=== PATIENT | male | born 1970 | race Caucasian/White ===

== ENCOUNTER 2023-01-06 18:14 | Emergency (ER) | payer BC, MEDICAID, SELFPAY ==
[2023-01-06] VITALS (29 sets, daily range): BP systolic 82–182; BP diastolic 64–121; PULSE 75–115; RESP 16–18; TEMP 34.2; O2SAT 77–99; BMI 18.2
--- NOTE | 2023-01-06 18:15 | ECG_ITS ---
[facility] Test Date: 2023-01-06 Pat Name: Alexis Duron Department: Room: Gender: Male Appointment Specialist: : 1970 Requested By: Russell Escobar Order Number: [id number] Ana Paula MD: Elsie Muir M.D. Measurements Intervals [place] Rate: 87 P: 79 MO: 154 QRS: 101 QRSD: 114 T: 0 QT: 394 QTc: 476 Interpretive Statements SINUS RHYTHM RIGHT AXIS DEVIATION [QRS AXIS > 100] ANTEROSEPTAL MYOCARDIAL INFARCTION , OF INDETERMINATE AGE [40+ ms Q WAVE IN V1-V4] ST DEPRESSION, CONSIDER SUBENDOCARDIAL INJURY [0.1+ mV ST DEPRESSION] INTERPRETATION BASED ON A DEFAULT AGE OF 40 YEARS No previous ECG available for comparison Electronically Signed On 01-07-2023 5:57:12 [employer] ARCHITECT by Elsie Muir M.D. [id number]
--- NOTE | 2023-01-06 18:16 | XRR_ITS ---
PROCEDURE INFORMATION: Exam: XR Chest Exam date and time: 01/06/2023 6:29 PM Age: 52 years old Clinical indication: Device placement; Ett placement (vent status); Patient HX: Cardiac arrest; Ett/og placement TECHNIQUE: Imaging protocol: Radiologic exam of the chest. Views: 1 view. COMPARISON: No relevant prior studies available. FINDINGS: Tubes, catheters and devices: There is an endotracheal tube with the tip 5.0 cm above the charlette. There is an enteric tube with the tip in the fundus of the stomach. Lungs: Mild interstitial pulmonary edema with superimposed atelectasis versus pneumonia in the left lingula and left lower lobe. Pleural spaces: Small left pleural effusion. No pneumothorax. Heart/Mediastinum: The cardiac silhouette is mildly enlarged. Bones/joints: Multilevel degenerative changes of varying severity in the visualized spine. XR/XR chest 1V portable [id number] IMPRESSION: 1. Mild interstitial pulmonary edema with superimposed atelectasis versus pneumonia in the left lingula and left lower lobe. Recommend followup chest imaging to insure resolution of these findings. 2. There is an endotracheal tube with the tip 5.0 cm above the charlette. 3. There is an enteric tube with the tip in the fundus of the stomach. 4. Incidental/nonacute findings are listed in the report.
--- NOTE | 2023-01-06 18:23 | CTR_ITS ---
PROCEDURE INFORMATION: Exam: CT Head Without Contrast Exam date and time: 01/06/2023 7:51 PM Age: 52 years old Clinical indication: Other: Post code; Additional info: Cardiac arrest TECHNIQUE: Imaging protocol: Computed tomography of the head without contrast. Sagittal and coronal reformatted images were created and reviewed. Radiation optimization: All CT scans at this facility use at least one of these dose optimization techniques: automated exposure control; mA and/or kV adjustment per patient size (includes targeted exams where dose is matched to clinical indication); or iterative reconstruction. REPORTING DATA: Count of CT and Cardiac NM exams in prior 12 months: This patient has received 0 known CTs and 0 known cardiac nuclear medicine studies in the 12 months prior to the current study. COMPARISON: No relevant prior studies available. RADIATION DOSE METRICS: Total DLP (mGy-cm): 1294.38 FINDINGS: Tubes, catheters and devices: Endotracheal tube and enteric tube extends into the hypopharynx, the tips are not included in the study. Brain: No acute intracranial hemorrhage. No acute infarct. No intra-axial or extra-axial masses. Payan-white matter differentiation is preserved. No cerebral edema. No extra-axial fluid collections. No midline shift. No evidence for Chiari 1 malformation. Mildly decreased attenuation in the deep white matter, consistent with mild chronic microangiopathic change. Cerebral ventricles: No hydrocephalus. Paranasal sinuses: Visualized paranasal sinuses are clear. Mastoid air cells: Mastoid air cells are clear bilaterally. Orbital cavities: Globes and lenses, extraocular muscles, and optic nerves are intact bilaterally. No acute intraorbital abnormality. Nasal cavity: Mild left nasal septal deviation. Bones/joints: Degenerative changes of the right and left temporomandibular joints. Soft tissues: No acute abnormality of the extracranial soft tissues. Vasculature: Mild atherosclerotic changes in the visualized arteries. CT/CT head wo con* [id number] IMPRESSION: 1. No acute abnormality of the brain. 2. Mild chronic white matter microangiopathic change. 3. Incidental/nonacute findings are listed in the report.
--- NOTE | 2023-01-06 18:27 | PC.NURSE ---
PT PRESENTS POST CODE WITH ROSC. EMS REPORTS THAT PATIENT WENT INTO ARREST AT 1630, EMS ARRIVAL TO IB. PATIENT GIVEN 3 ROUNDS OF EPI WHEN ROSC WAS ACHIEVED. PATIENT ALSO GIVEN 2 ROUNDS OF EPI FOR HYPOTENSION. PATIENT INTUBATED IN FIELD AT 1700, PATIENT GIVEN ETOMIDATE, ROCC, AND FENTANYL. PATIENT WAS PLACED IN AE1 AT 1721 AND HAS BEEN GIVEN MEDICATION SINCES. PATIENT DOES HAVE CARDIAC HX. PATIENT IS MECHANICALLY VENTILATED WITH APPROPRIATE COLOR. [ End ]
[2023-01-06] MEDS: sodium chloride 0.9% 1,000 ML 999 ML IV ×2 (18:43→23:30)
[2023-01-06] MEDS: fentaNYL 1,000 MCG/100 ML BAG 25 MCG IV (18:43)
[2023-01-06 18:45] LABS: Arterial Blood Gas Hematocrit 50.2 % (42-52); Base Excess ABG -12.6 mmol/L (-2.0-2.0); Blood Gas Allen Test Pos; Blood Gas Operator Identificat glc; Blood Gas Sample Site Radial, right; Blood Gas Sample Type Arterial; Carboxyhemoglobin 3.7 %THgb (0.4-20.1); HCO3 ABG 19.5 mmol/L (22-26); HGB O2 Sat 88.3 % (95-100); Ionized Calcium Level - ABG 1.1 mmol/L (1.1-1.4); Methemoglobin 0.3 % (0.4-1.5); Oxygen Device AMBU; PO2 ABG 88.9 mmHg (80.0-100.0); PO2 FiO2 Ratio Arterial Blood 0; Potassium Level - ABG 4.2 mmol/L (3.5-5.0); Total Hemoglobin 16.4 g/dL (14-18)
[2023-01-06 18:47] LABS: ABG PCO2 71.7 mmHg (35-45); ABG PH Result 7.04 (7.35-7.45)
--- NOTE | 2023-01-06 18:54 | PC.NURSE ---
HEPARIN, PLAVIX AND ASPIRIN ARE NOT GIVEN PER VERBAL ORDERS BY DR. BOOKER
[2023-01-06 19:19] LABS: Amphetamines Screen Urine Negative (Negative); Barbiturates Screen Urine Negative (Negative); Benzodiazepines Screen Urine Negative (Negative); Cocaine Screen Urine Negative (Negative); Opiate Screen Urine Negative (Negative); PCP Screen Urine Negative (Negative); THC Screen Urine Positive (Negative)
[2023-01-06 19:21] LABS: Basophils # 0.1 10^3/uL (0.0-0.1); Basophils % 0.6 %; Eosinophils # 0.3 10^3/uL (0.0-0.8); Eosinophils % 1.1 %; Hematocrit 53.3 % (37-53); Lymphocytes % 8.6 %; Mean Corpuscular HGB Conc 32.5 g/dL (30-55); Mean Corpuscular Hemoglobin 31.7 pg (27-33); Mean Corpuscular Volume 97.8 fl (82-101); Mean Platelet Volume 10.4 fL (7.4-10.4); Monocytes # 0.5 10^3/uL (0.2-0.9); Monocytes % 2.1 %; Neutrophils # 19.61 10^3/uL (1.8-7.7); Neutrophils % 85.6 %; Nucleated Red Blood Cells % 0 %; Platelet Count 143 10^3/cmm (157-399); Red Blood Count 5.45 10^6/uL (3.85-5.65); Red Cell Distribution Width 12.5 % (12.1-15.1); White Blood Count 22.95 10^3/uL (3.29-11.43)
[2023-01-06 19:33] LABS: INR 1.59 (0.8-1.2)
[2023-01-06 19:35] LABS: Partial Thromboplastin Time 28.4 SECONDS (23.9-36.7)
[2023-01-06 19:38] LABS: Bilirubin Urine Neg (Negative); Blood Urine 3+ (Negative); Glucose Urine UA 2+ (Normal); Ketones Urine Negative (Negative); Leukocyte Esterase Urine Negative (Negative); Nitrate Urine Negative (Negative); Protein Urine 3+ (Negative); Urine Appearance Hazy (CLEAR); Urine Color Yellow (Yellow); Urobilinogen Urine Neg (Negative); pH Urine 6.5 (5-7)
[2023-01-06 19:39] LABS: Add Urine Culture? Yes; Add Urine Microscopic? YES; Bacteria Urine TRACE /hpf; Squamous Epithelial Cell Urine RARE /hpf (0-5); WBC Urine 0-4 /hpf (0-5)
--- NOTE | 2023-01-06 19:45 | ED_ITS ---
HPI - CPR 2 General: Chief Complaint: Cardiac Arrest/CPR Stated Complaint: post code Time Seen by Provider: 01/06/23 18:16 History of Present Illness: 52-year-old male with a largely unknown history on the patient's arrival. At this point, paramedics were told by his that he had a prior history of coronary artery disease, and was an insulin-dependent diabetic. He evidently collapsed at home while sitting in a chair with his . Bystander CPR was started. Paramedics were called, and 3 mg of epinephrine were given for an asystole rhythm. ROSC was evidently obtained at that point. The patient has been in a sinus rhythm since that time. He was initially hypotensive, and small push doses of epinephrine were given for hypotension, but this is resolved. During the ACLS protocol, the patient was intubated in the field with good breath sounds. He presents with vital signs of sinus rhythm at 90, blood pressure 124/85, Review of Systems 2 General: Reports: ROS unobtainable due to endotracheal tube and ROS unobtainable due to medical condition Physical Exam 2 Const: EXAM LIMITATIONS: altered mental status GENERAL APPEARANCE: ill appearing and patient mechanically ventilated NUTRITIONAL APPEARANCE: thin ORIENTATION/CONSCIOUSNESS: Yes Other orientation findings (unresponsive) HENMT: COMMON NORMALS: normocephalic and Normal external nose present HEAD & SCALP: normocephalic FACE & SINUS: normal facial exam NOSE: Normal external nose present and Normal nares present TEETH & GINGIVA: Yes poor dentition Course 2 Vital Signs: Vital signs: Vital Signs Temperature 93.5 F L 01/06/23 18:15 Pulse Rate 90 01/07/23 00:35 Respiratory Rate 22 H 01/07/23 00:45 Blood Pressure 87/68 01/07/23 00:35 Pulse Oximetry 87 L 01/07/23 00:35 Oxygen Delivery Me thod Mechanical Ventil ation 01/07/23 00:30 Fraction of Inspir ed Oxygen 100 01/07/23 00:45 MDM - Cardiac Arrest/CPR Medical Decision Making Was able to speak with the patient's it appears that he moved here recently from [place]. She states that he was in an outside facility there in [facility] in the spring, and was diagnosed with coronary disease. She states his disease was all 3 blood vessels , 2 of which were 97% and 87% respectively. She says that a chest surgeon saw him in the hospital there, and told him if he had to have bypass surgery, he may not survive. The patient left the hospital at that point, no other evaluation or treatment was done. ROSC is achieved after cardiac arrest today. The patient's vitals have been stable. Current blood pressure 156/100, saturations 94% on the ventilator, heart rate is 93, sinus rhythm. Chest x-ray shows tubes in appropriate positions essentially, and some pulmonary vascular congestion. White blood cell count is 23. Hemoglobin is 17. Blood glucose is 349, bicarbonate is 21. He has a significant respiratory acidosis on blood gas testing on arrival. This will be repeated. His EKG initially showed ST depression laterally without significant elevation. This was shown to cardiology on the patient's arrival. Without significant ST elevation, suggestion was made to treat medically,, await troponins, and some other testing. D-dimer came back at greater than 20. Head CT revealed no acute bleed. CTA of the chest was performed, and shows significant plugging the left mainstream bronchus with associated postobstructive atelectasis/pneumonitis. It also shows mild to moderate interstitial pulmonary edema. There is distention of the stomach, with the OG tube at the GE junction. This was advanced. Patient is currently on propofol and fentanyl. Blood pressure is 110/84, heart rate is 106, saturations are 90% on 100% on the ventilator. Aspiration cannot be ruled out at this point. I do not have bronchoscopy capability here this weekend. I do not have CT surgery availability either. This patient is postcode, and we do not have a hypothermia protocol. I reached out to [facility] in [place]. They are trying to clear an ICU bed for this patient. Spoke with the shredding machine knife changer at [facility]. Bed is available for this patient. This patient has been hard to oxygenate, and this continues. After advancement of OG tube, repeat x-ray was done to check placement. On repeat x-ray, the patient now has near complete opacity of the left lung indicating likely mainstream obstruction. This patient's the need for potential bronchoscopy should the patient stabilize. Were having more problems with oxygenating the patient at this point. Trying to maintain oxygen saturation of around 90% with vent settings. We paralyzed with vecuronium which helped, as he is breathing over the vent. This is his only Sign of neurological recovery at this point is the overbreathing. He has not made any purposeful movements whatsoever. His pupils are fixed, but nondilated. They are equal. He has begun to get hypotensive as well, and norepinephrine has been started. The patient's is still at home. Nursing is try to keep her updated. He will be transferred to [facility] emergently. Lab Data 01/06/23 19:10 01/06/23 19:[address] 01/06/23 18:23 IMPRESSION: 1. No acute abnormality of the brain. 2. Mild chronic white matter microangiopathic change. 3. Incidental/nonacute findings are listed in the report. Chest CTA 01/06/23 20:08 IMPRESSION: 1. Small loculated pneumothoraces just underneath the anterior right 3rd, 4th, and 6th ribs and the left anterior 6th interspace. 2. Nondisplaced fractures of the costal cartilages of the anterior right 4th, 5th, and 6th ribs and the costochondral junctions of the anterior right 7th and 8th ribs. Nondisplaced fractures of the anterolateral right 3rd, 4th, 5th, and 6th ribs (segmental fractures of the right 4th, 5th, and 6th ribs). Nondisplaced fractures of the anterolateral left 2nd, 3rd, 4th, 5th, and 6th ribs. No left-sided segmental rib fractures. 3. Nondisplaced fracture through the midbody of the sternum. 4. Extensive mucous plugging in the left mainstem bronchus, left upper lobe, lingular, and left lobar bronchi in multiple segmental left lower lobe bronchi. Associated postobstructive atelectasis/pneumonia in the left lingula and left lower lobe. Possible aspirated contents can not be ruled out. 5. Mild to moderate interstitial pulmonary edema. 6. No evidence for pulmonary embolism. 7. The tip of the enteric tube is now just below the GE junction with the proximal port in the esophagus. Interval development of marked distention of the visualized stomach with ingested food and fluid in the stomach. Consider advancing the enteric tube 6-7 cm. 8. Dependent atelectasis in the right lung. 9. Small left pleural effusion. 10. The endotracheal tube is stable in position with the tip 5.1 cm above the charlette. 11. Incidental/nonacute findings are listed in the report. COMMENTS: In the absence of a history or active diagnosis of lung cancer, it is recommended that this patient with emphysema be evaluated for enrollment in a low dose CT lung cancer screening program. ADDENDUM: 01/06/23 6989 THIS REPORT CONTAINS FINDINGS THAT MAY BE CRITICAL TO PATIENT CARE. The findings were verbally communicated via telephone conference with VERONICA Smith at 11:03 PM LATHE MACHINE OPERATOR on 01/06/2023. The findings were acknowledged and understood. Chest X-Ray 01/06/23 23:49 IMPRESSION: 1. Endotracheal tube tip in place 4.8 cm above the charlette. 2. Left lung near complete opacification. 3. Patchy right lung field airspace infiltrate. 4. Enteric tube tip extending inferiorly off the field of view. Laboratory Results WBC 22.95 10^3/uL (3.29-11.43) H 01/06/23 19:10 RBC 5.45 10^6/uL (3.85-5.65) 01/06/23 19:10 Hgb 17.30 g/dL (11.27-16.99) H 01/06/23 19:10 Hct 53.3 % (37-53) H 01/06/23 19:10 MCV 97.8 fl (82-101) 01/06/23 19:10 MCH 31.7 pg (27-33) 01/06/23 19:10 MCHC 32.5 g/dL (30-55) 01/06/23 19:10 RDW 12.5 % (12.1-15.1) 01/06/23 19:10 Plt Count 143 10^3/cmm (157-399) L 01/06/23 19:10 MPV 10.4 fL (7.4-10.4) 01/06/23 19:10 Neut % (Auto) 85.6 % 01/06/23 19:10 Lymph % (Auto) 8.6 % 01/06/23 19:10 [place] % (Auto) 2.1 % 01/06/23 19:10 Eos % (Auto) 1.1 % 01/06/23 19:10 Baso % (Auto) 0.6 % 01/06/23 19:10 Neut # (Auto) 19.61 10^3/uL (1.8-7.7) H 01/06/23 19:10 Lymph # (Auto) 2.0 10^3/uL (0.8-4.8) 01/06/23 19:10 [place] # (Auto) 0.5 10^3/uL (0.2-0.9) 01/06/23 19:10 Eos # (Auto) 0.3 10^3/uL (0.0-0.8) 01/06/23 19:10 Baso # (Auto) 0.1 10^3/uL (0.0-0.1) 01/06/23 19:10 Nucleated RBC % (auto) 0 % 01/06/23 19:10 Nucleated RBCs # 0.0 /100WBC 01/06/23 19:10 PT 19.50 SECONDS (12.1-14.9) H 01/06/23 19:10 INR 1.59 (0.8-1.2) H 01/06/23 19:10 APTT 28.4 SECONDS (23.9-36.7) 01/06/23 19:10 D-Dimer >= 20.00 ug/mLFEU (0-0.59) H 01/06/23 19:10 Specimen Type Arterial 01/06/23 21:12 Sample Site Radial, left 01/06/23 21:12 ABG pH 7.12 (7.35-7.45) L* 01/06/23 21:12 ABG pCO2 58.6 mmHg (35-45) H 01/06/23 21:12 ABG pO2 74.2 mmHg (80.0-100.0) L 01/06/23 21:12 ABG PO2/FiO2 Ratio 0 01/06/23 21:12 ABG HCO3 18.9 mmol/L (22-26) L 01/06/23 21:12 ABG O2 Saturation 92.0 01/06/23 18:19 ABG Base Excess -11.4 mmol/L (-2.0-2.0) L 01/06/23 21:12 [place]ilo Test Pos 01/06/23 21:12 A-a O2 Gradient 70.0 mmHg (5-10) H 01/06/23 18:19 Hematocrit 54.4 % (42-52) H 01/06/23 21:12 Hgb O2 Saturation 88.3 % (95-100) L 01/06/23 18:19 Carboxyhemoglobin 3.7 %THgb (0.4-20.1) 01/06/23 18:19 Methemoglobin 0.3 % (0.4-1.5) L 01/06/23 18:19 Total Hemoglobin 16.4 g/dL (14-18) 01/06/23 18:19 Sodium 137.0 mmol/L (131-143) 01/06/23 18:19 Potassium 4.2 mmol/L (3.5-5.0) 01/06/23 18:19 Glucose 346.0 mg/dL (70-115) H 01/06/23 18:19 Ionized Calcium 1.1 mmol/L (1.1-1.4) 01/06/23 18:19 O2 Delivery Device Vent 01/06/23 21:12 O2 Liters/Min 15.0 % 01/06/23 18:19 FiO2 80.0 % 01/06/23 21:12 Tidal Volume 0.50 01/06/23 21:12 PEEP 5.0 cmH20 01/06/23 21:12 Residential Sales Associate ID [email or web address] 01/06/23 21:12 Sodium 139 mmol/L (136-145) 01/06/23 19:10 Potassium 4.6 mmol/L (3.5-5.1) 01/06/23 19:10 Chloride 104 mmol/L (98-107) 01/06/23 19:10 Carbon Dioxide 21 mmol/L (22-29) L 01/06/23 19:10 Anion Gap 18.6 (5-19) 01/06/23 19:10 BUN 15 mg/dL (6-20) 01/06/23 19:10 Creatinine 1.1 mg/dL (0.7-1.2) 01/06/23 19:10 GFR Calculation 70.9 mL/min (90-130) L 01/06/23 19:10 Glucose 349 mg/dL (65-115) H 01/06/23 19:10 Calculated Osmolality 303 mOsm/kg (285-295) H 01/06/23 19:10 Lactic Acid 4.1 mmol/L (0.5-2.2) H* 01/06/23 19:10 Calcium 8.0 mg/dL (8.5-10.5) L 01/06/23 19:10 Total Bilirubin 0.6 mg/dL (0.15-1.2) 01/06/23 19:10 AST 522 U/L (0-40) H 01/06/23 19:10 ALT 371 U/L (0-41) H 01/06/23 19:10 Alkaline Phosphatase 189 U/L (40-130) H 01/06/23 19:10 Creatine Kinase 356 U/L (39-308) H* 01/06/23 19:10 Troponin T Baseline 194 ng/L (0-15) H* 01/06/23 19:10 Troponin T 120 Minute 220.3 ng/L (0-15) H 01/06/23 21:14 Delta Troponin T 26.3 ABS# (0-10) H* 01/06/23 21:14 NT-Pro-B Natriuret Pep 1491 pg/mL (0-125) H 01/06/23 19:10 Total Protein 5.5 g/dL (6.6-8.7) L 01/06/23 19:10 Albumin 4.2 g/dL (3.5-5.2) 01/06/23 19:10 Globulin 1.3 g/dL (1.3-4.6) 01/06/23 19:10 Urine Color Yellow (Yellow) 01/06/23 18:48 Urine Appearance Hazy (CLEAR) A 01/06/23 18:48 Urine pH 6.5 (5-7) 01/06/23 18:48 Ur Specific [place] 1.010 (1.005-1.030) 01/06/23 18:48 Urine Protein 3+ (Negative) H 01/06/23 18:48 Urine Glucose (UA) 2+ (Normal) H 01/06/23 18:48 Urine Ketones Negative (Negative) 01/06/23 18:48 Urine Blood 3+ (Negative) H 01/06/23 18:48 Urine Nitrate Negative (Negative) 01/06/23 18:48 Urine Bilirubin Neg (Negative) 01/06/23 18:48 Urine Urobilinogen Neg mg/dL (Negative) 01/06/23 18:48 Ur Leukocyte Esterase Negative (Negative) 01/06/23 18:48 Urine RBC 10-15 /hpf (0-2) H 01/06/23 18:48 Urine WBC 0-4 /hpf (0-5) H 01/06/23 18:48 Ur Squamous Epith Cells Rare /hpf (0-5) 01/06/23 18:48 Amorphous Sediment Not Reportable 01/06/23 18:48 Urine Bacteria Trace /hpf (NONE) 01/06/23 18:48 Urine Opiates Screen Negative ng/mL (Negative) 01/06/23 18:48 Ur Barbiturates Screen Negative ng/mL (Negative) 01/06/23 18:48 Ur Phencyclidine Scrn Negative ng/mL (Negative) 01/06/23 18:48 Ur Amphetamines Screen Negative ng/mL (Negative) 01/06/23 18:48 U Benzodiazepines Scrn Negative ng/mL (Negative) 01/06/23 18:48 Urine Cocaine Screen Negative ng/mL (Negative) 01/06/23 18:48 U Marijuana (THC) Screen Positive ng/mL (Negative) H 01/06/23 18:48 Ethyl Alcohol < 10 mg/dL (0-10) 01/06/23 19:10 All radiology interpretation(s) finalized by discharge Critical Care Time 2 Critical Care Time: Critical Care Time: Yes Total Critical Care Time: 70 Attestation: This case had a high probability of a clinically significant, sudden, or life threatening deterioration of this patient's condition which required my full and direct attention, intervention and personal management. Time is independent of any procedures performed. Discharge Plan Discharge Patient Disposition: Xfer Short-Term Hosp Clinical Impression: Acute respiratory failure, Lower airway obstruction, Cardiac arrest with successful resuscitation, Cardiogenic shock Condition: Critical Coding Level of Care Code ED Installation Manager for Mary Ruiz
[2023-01-06 19:46] LABS: Troponin(5th) Baseline 194 ng/L (0-15)
[2023-01-06 19:51] LABS: D Dimer >= 20.00 ug/mLFEU (0-0.59)
[2023-01-06 20:05] LABS: Alanine Aminotransferase 371 U/L (0-41); Albumin Level 4.2 g/dL (3.5-5.2); Alkaline Phosphatase 189 U/L (40-130); Blood Urea Nitrogen 15 mg/dL (6-20); Carbon Dioxide 21 mmol/L (22-29); Chloride 104 mmol/L (98-107); Globulin 1.3 g/dL (1.3-4.6); Glomerular Filtration Rate 70.9 mL/min (90-130); Glucose 349 mg/dL (65-115); NT Pro B Type Natriuretic Pept 1491 pg/mL (0-125); Osmolality Calculated 303 mOsm/kg (285-295); Sodium 139 mmol/L (136-145); Total Bilirubin 0.6 mg/dL (0.15-1.2); Total Protein 5.5 g/dL (6.6-8.7)
[2023-01-06 20:07] LABS: Alcohol Level < 10 mg/dL (0-10)
[2023-01-06 20:08] LABS: Anion Gap 18.6 (5-19); Aspartate Amino Transferase 522 U/L (0-40); Creatine Phosphokinase 356 U/L (39-308); Potassium 4.6 mmol/L (3.5-5.1)
--- NOTE | 2023-01-06 20:08 | CTR_ITS ---
PROCEDURE INFORMATION: Exam: CTA Chest With Contrast Exam date and time: 01/06/2023 10:15 PM Age: 52 years old Clinical indication: Abnormal findings; Abnormal diagnostic tests; Elevated d-dimer; Patient HX: D dimer > 20.00. Post cardiac arrest. Intubated. ; Additional info: S/P cardiac arrest, s/p CPR TECHNIQUE: Imaging protocol: Computed tomographic angiography of the chest with contrast. Exam focused on the arteries. Sagittal and coronal reformatted images were created and reviewed. 3D rendering (Not supervised by radiologist): MIP and/or 3D reconstructed images were created by the technologist. Radiation optimization: All CT scans at this facility use at least one of these dose optimization techniques: automated exposure control; mA and/or kV adjustment per patient size (includes targeted exams where dose is matched to clinical indication); or iterative reconstruction. Contrast material: OMNI 350; Contrast volume: 70 ml; Contrast route: INTRAVENOUS (IV); REPORTING DATA: Count of CT and Cardiac NM exams in prior 12 months: This patient has received 0 known CTs and 0 known cardiac nuclear medicine studies in the 12 months prior to the current study. COMPARISON: CR (CHEST, ) 01/06/2023 6:29 PM RADIATION DOSE METRICS: Total DLP (mGy-cm): 767.42 FINDINGS: Limitations: Respiratory motion artifact on multiple images that can limit evaluation. Tubes, catheters and devices: The endotracheal tube is stable in position with the tip 5.1 cm above the charlette. The tip of the enteric tube is now just below the GE junction with the proximal port in the esophagus. Interval development of marked distention of the visualized stomach with ingested food and fluid in the stomach. Consider advancing the enteric tube 6-7 cm. Pulmonary arteries: No filling defects in the pulmonary arteries to suggest pulmonary embolism. Aorta: Mild atherosclerotic changes in the visualized arteries. No evidence for aortic aneurysm. Evaluation for aortic dissection is limited due to the phase of contrast-enhancement. Lungs: Extensive mucous plugging in the left mainstem bronchus, left upper lobe, lingular, and left lobar bronchi in multiple segmental left lower lobe bronchi. Associated postobstructive atelectasis/pneumonia in the left lingula and left lower lobe. Possible aspirated contents can not be ruled out. Mild to moderate interstitial pulmonary edema. Dependent atelectasis in the right lung. Mild to moderate paraseptal emphysematous changes in the lung apices. Pleural spaces: Small loculated pneumothoraces just underneath the anterior right 3rd, 4th, and 6th ribs and the left anterior 6th interspace. Small left pleural effusion. Heart: Marked enlargement of the heart. Mediastinal space: No mediastinal hematoma. No pneumomediastinum. Lymph nodes: No lymphadenopathy. Liver: The visualized liver is unremarkable. Gallbladder and bile ducts: The visualized gallbladder is unremarkable. No dilatation of the visualized bile ducts. Pancreas: Mild atrophy of the visualized pancreatic parenchyma. Spleen: The visualized spleen is unremarkable. Adrenal glands: The visualized right and left adrenal glands are unremarkable. Kidneys and ureters: The visualized left kidney is unremarkable. Stomach and bowel: Interval development of marked distention of the visualized stomach with ingested food and fluid in the stomach. Consider advancing the enteric tube 6-7 cm. Bones/joints: Nondisplaced fractures of the costal cartilages of the anterior right 4th, 5th, and 6th ribs and the costochondral junctions of the anterior right 7th and 8th ribs. Nondisplaced fractures of the anterolateral right 3rd, 4th, 5th, and 6th ribs (segmental fractures of the right 4th, 5th, and 6th ribs). Nondisplaced fractures of the anterolateral left 2nd, 3rd, 4th, 5th, and 6th ribs. No left-sided segmental rib fractures. Nondisplaced fracture through the midbody of the sternum (series 12, image 5). Soft tissues: Moderate body wall edema. Moderate body wall edema. Impression. CT/CT angio chest [place] prot [id number] IMPRESSION: 1. Small loculated pneumothoraces just underneath the anterior right 3rd, 4th, and 6th ribs and the left anterior 6th interspace. 2. Nondisplaced fractures of the costal cartilages of the anterior right 4th, 5th, and 6th ribs and the costochondral junctions of the anterior right 7th and 8th ribs. Nondisplaced fractures of the anterolateral right 3rd, 4th, 5th, and 6th ribs (segmental fractures of the right 4th, 5th, and 6th ribs). Nondisplaced fractures of the anterolateral left 2nd, 3rd, 4th, 5th, and 6th ribs. No left-sided segmental rib fractures. 3. Nondisplaced fracture through the midbody of the sternum. 4. Extensive mucous plugging in the left mainstem bronchus, left upper lobe, lingular, and left lobar bronchi in multiple segmental left lower lobe bronchi. Associated postobstructive atelectasis/pneumonia in the left lingula and left lower lobe. Possible aspirated contents can not be ruled out. 5. Mild to moderate interstitial pulmonary edema. 6. No evidence for pulmonary embolism. 7. The tip of the enteric tube is now just below the GE junction with the proximal port in the esophagus. Interval development of marked distention of the visualized stomach with ingested food and fluid in the stomach. Consider advancing the enteric tube 6-7 cm. 8. Dependent atelectasis in the right lung. 9. Small left pleural effusion. 10. The endotracheal tube is stable in position with the tip 5.1 cm above the charlette. 11. Incidental/nonacute findings are listed in the report. COMMENTS: In the absence of a history or active diagnosis of lung cancer, it is recommended that this patient with emphysema be evaluated for enrollment in a low dose CT lung cancer screening program.
--- NOTE | 2023-01-06 20:10 | ECG_ITS ---
[facility] Test Date: 2023-01-06 Pat Name: Alexis Duron Department: Room: Gender: Male Procurement Representative: : 1970 Requested By: Russell Escobar Order Number: [id number] Ana Paula MD: Elsie Muir M.D. Measurements Intervals [place] Rate: 91 P: 74 TN: 150 QRS: 98 QRSD: 102 T: 87 QT: 371 QTc: 458 Interpretive Statements SINUS RHYTHM BORDERLINE RIGHT AXIS DEVIATION [QRS AXIS > 90] LEFT VENTRICULAR HYPERTROPHY AND ST-T CHANGE [VOLTAGE CRITERIA PLUS ST/T ABNORMALITY] POSSIBLE SEPTAL MYOCARDIAL INFARCTION , OF INDETERMINATE AGE [30 ms Q WAVE IN V1/V2] No previous ECG available for comparison Electronically Signed On 01-07-2023 6:09:15 SURGICAL ELASTIC KNITTER by Elsie Muir M.D. [id number]
[2023-01-06] MEDS: propofol 1,000 MG/100 ML INJ 10 MG (20:58)
[2023-01-06] MEDS: aspirin 325 mg Tablet PO (21:00)
[2023-01-06] MEDS: clopidogrel 300 mg Tablet 600 MG PO (21:01)
[2023-01-06] MEDS: sodium chloride 0.9% 1,000 ML 150 ML IV (21:01)
[2023-01-06 21:22] LABS: ABG PCO2 58.6 mmHg (35-45); Arterial Blood Gas Hematocrit 54.4 % (42-52); Base Excess ABG -11.4 mmol/L (-2.0-2.0); Blood Gas Allen Test Pos; Blood Gas Sample Site Radial, left; Blood Gas Sample Type Arterial; HCO3 ABG 18.9 mmol/L (22-26); Oxygen Device VENT; PO2 ABG 74.2 mmHg (80.0-100.0); PO2 FiO2 Ratio Arterial Blood 0
[2023-01-06 21:23] LABS: ABG PH Result 7.12 (7.35-7.45)
[2023-01-06 22:02] LABS: Troponin 5 2HR 220.3 ng/L (0-15); Troponin 5 2HR Delta 26.3 ABS# (0-10)
[2023-01-06] MEDS: iohexol 350 mg/mL 500 mL Btl (per mL) IV (22:27)
[2023-01-06] MEDS: propofol 1,000 MG/100 ML INJ 1.78 MG IV (23:00)
[2023-01-06 23:17] LABS: Lactic Sepsis W/Reflex 4.1 mmol/L (0.5-2.2)
--- NOTE | 2023-01-06 23:49 | XRR_ITS ---
PROCEDURE INFORMATION: Exam: XR Chest Exam date and time: 01/06/2023 11:50 PM Age: 52 years old Clinical indication: Device placement; Ng tube; Patient HX: Recheck S/P advancement of og tube; Additional info: Og tube advancement TECHNIQUE: Imaging protocol: Radiologic exam of the chest. Views: 1 view. COMPARISON: CT angio chest PE protcl [id number] 01/06/2023 10:15 PM FINDINGS: Tubes, catheters and devices: Endotracheal tube tip in place 4.8 cm above the charlette. Enteric tube tip extending inferiorly off the field of view. Lungs: Left lung near complete opacification. Patchy right lung field airspace infiltrate. Pleural spaces: Unremarkable. No pleural effusion. No pneumothorax. Heart/Mediastinum: Unremarkable. No cardiomegaly. Bones/joints: Unremarkable. XR/XR chest 1V portable [id number] IMPRESSION: 1. Endotracheal tube tip in place 4.8 cm above the charlette. 2. Left lung near complete opacification. 3. Patchy right lung field airspace infiltrate. 4. Enteric tube tip extending inferiorly off the field of view.
[2023-01-07] MEDS: piperacillin-tazobactam 4.5 GM in sodium chloride 0.9% (plus) 50 ML IV (00:01)
[2023-01-07] MEDS: norepinephrine 4 MG/250 ML BAG 18.75 MG IV (00:10)
[2023-01-07 00:20] VITALS: BP 96/72; PULSE 93; O2SAT 86
--- NOTE | 2023-01-07 00:24 | ECG_ITS ---
[facility] Test Date: 2023-01-07 Pat Name: Alexis Duron Department: Room: Gender: Male House Calls Nurse: : 1970 Requested By: Russell Escobar Order Number: [id number] Ana Paula MD: Elsie Muir M.D. Measurements Intervals [place] Rate: 90 P: 78 SD: 152 QRS: 103 QRSD: 96 T: 97 QT: 389 QTc: 477 Interpretive Statements SINUS RHYTHM SEPTAL MYOCARDIAL INFARCTION , OF INDETERMINATE AGE [40+ ms Q WAVE IN V1/V2] LATERAL MYOCARDIAL INFARCTION , OF INDETERMINATE AGE [40+ ms Q WAVE AND/OR ST/T ABNORMALITY IN I/aVL/V5/V6] Compared to ECG 01/06/2023 20:10:32 Left ventricular hypertrophy no longer present ST (T wave) deviation no longer present Myocardial infarct finding still present Electronically Signed On 01-08-2023 21:36:13 COMBUSTION ANALYST by Elsie Muir M.D. [id number]
[2023-01-07 00:25] VITALS: BP 91/67; PULSE 91; O2SAT 85
[2023-01-07 00:30] VITALS: BP 85/64; PULSE 89; O2SAT 89
[2023-01-07 00:35] VITALS: BP 87/68; PULSE 90; O2SAT 87
--- NOTE | 2023-01-07 00:38 | PC.NURSE ---
Patient report was called to Jeni Fritz RN to [facility], room 15. All questions and concerns were addressed at time of report. Roseanne was informed of where patient was being transferred.
[2023-01-07 00:45] VITALS: RESP 22
[2023-01-07 00:52] LABS: Reflex Lactate Order REFLEX LACTIC ORDERD
[2023-01-07] MEDS: vecuronium 10 mg SDV IVP (01:29)
[2023-01-07] MEDS: vancomycin 1,250 MG/250 ML PIGGYBACK 250 MG IV (02:26)
== END 2023-01-07 01:50 | disposition short-term general hospital (02) ==
PROVIDERS: Emergency Provider Emergency Medicine
DX: I46.9 Cardiac arrest, cause unspecified (principal); R57.0 Cardiogenic shock; J98.8 Other specified respiratory disorders; J96.00 Acute respiratory failure, unspecified whether with hypoxia or hypercapnia; S22.43XA Multiple fractures of ribs, bilateral, initial encounter for closed fracture; J90 Pleural effusion, not elsewhere classified; I25.10 Atherosclerotic heart disease of native coronary artery without angina pectoris; E11.9 Type 2 diabetes mellitus without complications; Z79.4 Long term (current) use of insulin; X58.XXXA Exposure to other specified factors, initial encounter
CPT/HCPCS: 36415; 36600; 51702; 70450; 71045; 71275; 80051; 80053; 80306; 80307; 81001; 82330; 82550; 82803; 82805; 83605; 83880; 84484; 85025; 85378; 85610; 85730; 87040; 87086; 93005; 94002; 94799; 96365; 96366; 96375; 99291; J2543; J2704; J3010; J3370; J3490; J7030; Q9967